=== PATIENT | female | born 1975 | race Hispanic/Latino ===

== ENCOUNTER → 2022-06-29 | Day surgery (SDC) | payer OTHER ==
[~2022-06-29] MED LIST: FENTANYL CITRATE/PF 100MCG/2 ML INJ ONE; LIDOCAINE HCL 2% LOCAL INJ 5 ML SDV VIAL INJ ONE; MIDAZOLAM HCL 2 MG/2 ML VIAL ONE; PROPOFOL IV EMULSION 10 MG/ML 20 ML VIAL ONE
[2022-06-29 10:20] VITALS: BP 115/82
== END | disposition home or self-care (01) ==
LOC: OR 08:07
PROVIDERS: ATTEND Internal Medicine Gastroenterology
DX: D12.0 Benign neoplasm of cecum (principal); K57.30 Diverticulosis of large intestine without perforation or abscess without bleeding; K64.8 Other hemorrhoids; K92.1 Melena; R10.13 Epigastric pain; E73.9 Lactose intolerance, unspecified; A04.9 Bacterial intestinal infection, unspecified; Z68.41 Body mass index [BMI] 40.0-44.9, adult; Z80.0 Family history of malignant neoplasm of digestive organs
CPT/HCPCS: 45384; 81025; J2001; J2704; 45378; J2250; J3010